=== PATIENT | female | born 1935 | race African-American/Black ===

== ENCOUNTER 2017-03-10 07:39 | Day surgery (SDC) | payer OTHER ==
[~2017-03-10] VITALS: Ht 170.2 cm; Wt 69.4 kg
[~2017-03-10 07:39] MED LIST: ALEN70TA13 PO; BENA40TA3 PO; CYAN10009 PO; GLIP10TA10 PO; HYDR25TA PO; HYDR453.3 TP; IBUP-1510 PO; METF10002 PO; SIMV40TA5 PO
[2017-03-10] MEDS ORDERED: POTA20TA75 PO (08:58)
[2017-03-10] MEDS ORDERED: FURO-151 PO (08:58)
[2017-03-10] MEDS ORDERED: LOSA50TA20 PO (08:58)
[2017-03-10] MEDS ORDERED: CARV6.2548 PO (08:58)
[2017-03-10] MEDS ORDERED: ASPI-1035 PO (08:58)
[2017-03-10] MEDS ORDERED: FERR-63 PO (08:58)
[2017-03-10] MEDS ORDERED: MAGN400C PO (08:58)
[2017-03-10] MEDS ORDERED: LIDOCAINE HCL 1% 20ML VIAL (Pyxis) INJ ONE (09:18)
[2017-03-10] MEDS ORDERED: IODIXANOL 320MG/ML 200ML BOTTLE ONE (09:26)
[2017-03-10] MEDS ORDERED: HEPARIN SODIUM 1,000 UNIT/1ML VIAL IV ONE ×2 (09:27→09:29)
[2017-03-10] MEDS ORDERED: MIDAZOLAM HCL 2 MG/2 ML VIAL ONE (09:31)
[2017-03-10] MEDS ORDERED: FENTANYL CITRATE/PF 50MCG/ML 2ML VIAL ONE (09:31)
[2017-03-10] MEDS ORDERED: ACETAMINOPHEN 325MG TABLET PO PRN (10:15)
== END 2017-03-10 13:00 | disposition home or self-care (01) ==
LOC: CCL 07:39
PROVIDERS: ATTEND Specialist
DX: I25.10 Atherosclerotic heart disease of native coronary artery without angina pectoris (principal); I50.9 Heart failure, unspecified; E78.5 Hyperlipidemia, unspecified; I12.9 Hypertensive chronic kidney disease with stage 1 through stage 4 chronic kidney disease, or unspecified chronic kidney disease; N18.9 Chronic kidney disease, unspecified; E11.9 Type 2 diabetes mellitus without complications
CPT/HCPCS: 82962; 93458; C1769; C1893; J1644; J2250; J3010; J3490; Q9967